=== PATIENT | female | born 1930 | race Caucasian/White ===

== ENCOUNTER 2018-08-06 10:56 | Emergency (ER) | payer OTHER ==
[~2018-08-06] VITALS: Ht 152.4 cm; Wt 55.8 kg
[~2018-08-06 10:56] MED LIST: AUGMENTIN PO; CARDURA 2 MG; CORTISPORIN EAR10 M1 OTIC; FLONASE16 GM NASAL; NORFLEX100 MG PO; NORVASC5 MG PO; PLAVIX75 MG PO; PRILOSEC20 MG PO; PROZAC20 MG PO; RESTORIL30 MG PO; SKELAXIN 800 MG; ULTRAM50 MG PO; XANAX1 MG; XANAX1 MG PO; ZOCOR20 MG PO
[2018-08-06] MEDS ORDERED: MUPIROCIN22 GM TOP (13:04)
[2018-08-06] MEDS ORDERED: DOXAZOSIN MESYLA4 MG PO (13:07)
== END 2018-08-06 13:13 | disposition home or self-care (01) ==
LOC: ER 10:56
DX: S40.812A Abrasion of left upper arm, initial encounter (principal); W01.198A Fall on same level from slipping, tripping and stumbling with subsequent striking against other object, initial encounter; Y93.E8 Activity, other personal hygiene; Y92.012 Bathroom of single-family (private) house as the place of occurrence of the external cause; Y99.8 Other external cause status

== ENCOUNTER 2018-11-12 07:35 | Outpatient (CLI) | payer OTHER ==
[~2018-11-12 07:35] MED LIST changes: +DOXAZOSIN MESYLA4 MG PO; +MUPIROCIN22 GM TOP
== END 2018-11-12 08:02 | disposition home or self-care (01) ==
LOC: NUCLEAR 07:35
DX: I20.9 Angina pectoris, unspecified (principal)
CPT/HCPCS: 78452; 93017; A9500; J0153

== ENCOUNTER 2018-12-13 11:00 | Outpatient (CLI) | payer OTHER | END 2018-12-13 11:38 | disposition home or self-care (01) | LOC: NUCLEAR 11:00 | DX: C50.411 Malignant neoplasm of upper-outer quadrant of right female breast (principal); C50.412 Malignant neoplasm of upper-outer quadrant of left female breast | CPT/HCPCS: 78815; A9552 ==